=== PATIENT | female | born 1955 | race Caucasian/White ===

== ENCOUNTER 2020-05-30 21:16 | Emergency (ER) | payer OTHER, MEDICAID ==
[~2020-05-30] VITALS: Ht 162.6 cm; Wt 57.6 kg
[2020-05-30 21:34] LABS: URINE BILIRUBIN NEGATIVE (Negative); URINE BLOOD NEGATIVE (Negative); URINE CLARITY CLEAR; URINE COLOR YELLOW; URINE GLUCOSE-RANDOM NEGATIVE (Negative); URINE KETONES NEGATIVE (Negative); URINE LEUKOCYTES TRACE (Negative); URINE NITRITE NEGATIVE (Negative); URINE PROTEIN NEGATIVE (Negative); URINE SPECIFIC GRAVITY <= 1.005 (1.005-1.030); URINE UROBILINOGEN 0.2 E.U./dl (0.2-1.0)
[2020-05-30 21:46] LABS: SQUAMOUS >10 Many /LPF (0-3)
[2020-05-30] MEDS ORDERED: PROZAC40 MG PO (21:46)
[2020-05-30 21:47] LABS: CASTS None Seen /LPF (None Seen); CRYSTALS None Seen /LPF (None Seen); MUCUS None Seen strn/LPF (None Seen); URINE RBC None Seen /HPF (0-2); URINE WBC 0-5 Rare /HPF (0-5)
[2020-05-30 21:48] LABS: HEMATOCRIT 35.3 % (37.0-47.0); HEMOGLOBIN 12.1 gm/dL (12.0-15.0); MCH 34.6 pg (26.0-34.0); MCHC 34.3 g/dL (28.0-37.0); MCV 100.9 fL (80.0-100.0); MPV 9.8 fl. (7.2-11.1); RBC 3.5 mil/uL (4.20-5.00); RDW-CV 14.9 % (10.5-14.5); WBC 12.5 thou/uL (4.0-11.0)
[2020-05-30 21:51] LABS: AMP/METHAMP Negative (Negative); BARBITURATES Negative (Negative); BENZODIAZEPINES Negative (Negative); COCAINE Negative (Negative); METHADONE Negative (Negative); OPIATES Negative (Negative); PCP Negative (Negative); THC Negative (Negative)
[2020-05-30 21:56] LABS: CALCIUM 7.9 mg/dL (8.5-10.1); CREATININE 0.8 mg/dL (0.6-1.3); POTASSIUM 3.6 mmol/L (3.5-5.1)
[2020-05-30 22:00] LABS: ALBUMIN 3.8 g/dL (3.4-5.0); TOTAL BILIRUBIN 0.3 mg/dL (<0.1-1.0); TOTAL PROTEIN 7.1 g/dL (6.4-8.2)
[2020-05-30 22:05] LABS: ACETAMINOPHEN < 2 ug/mL (10-30); ALCOHOL 239 mg/dL (<10); SALICYLATE 4.9 mg/dL (2.8-20.0)
[2020-05-31 12:03] VITALS: BP 137/61
== END 2020-05-31 12:03 ==
LOC: M.ERS 21:16
PROVIDERS: Personal Emergency Response Attendant
DX: F32.9 Major depressive disorder, single episode, unspecified (principal); Z20.828 Contact with and (suspected) exposure to other viral communicable diseases; R45.851 Suicidal ideations; F10.929 Alcohol use, unspecified with intoxication, unspecified; Z79.899 Other long term (current) drug therapy

== ENCOUNTER 2020-08-29 12:42 | Inpatient (IN) | payer OTHER, MEDICAID ==
[~2020-08-29] VITALS: Ht 167.6 cm; Wt 57.3 kg
[2020-08-29] VITALS (8 sets, daily range): BP systolic 130–169; BP diastolic 68–83
[~2020-08-29 12:42] MED LIST: B-12500 MCG PO; MAGNESIUM400 MG PO; PEPCID20 MG PO; PRAZOSIN HCL1 MG PO; PRENATAL PO; PROZAC40 MG PO; REMERON 30 MG T30 M1 PO; ZYPREXA2.5 MG PO
[2020-08-29 13:06] LABS: URINE BILIRUBIN NEGATIVE (Negative); URINE BLOOD 2+ (Negative); URINE CLARITY CLEAR; URINE COLOR YELLOW; URINE GLUCOSE-RANDOM NEGATIVE (Negative); URINE KETONES 2+ (Negative); URINE LEUKOCYTES-REFLEX NEGATIVE (Negative); URINE NITRITE-REFLEX NEGATIVE (Negative); URINE PROTEIN NEGATIVE (Negative); URINE SPECIFIC GRAVITY 1.025 (1.005-1.030); URINE UROBILINOGEN 0.2 E.U./dl (0.2-1.0)
[2020-08-29 13:16] LABS: AMP/METHAMP Negative (Negative); BARBITURATES Negative (Negative); BENZODIAZEPINES Negative (Negative); COCAINE Negative (Negative); METHADONE Negative (Negative); OPIATES Negative (Negative); PCP Negative (Negative); THC POSITIVE (Negative)
[2020-08-29 13:19] LABS: SQUAMOUS 0-3 Few /LPF (0-3)
[2020-08-29 13:20] LABS: BACTERIA-REFLEX None Seen /HPF (None Seen); URINE RBC 0-2 Rare /HPF (0-2); URINE WBC-REFLEX None Seen /HPF (0-5)
[2020-08-29 13:21] LABS: CASTS None Seen /LPF (None Seen); CRYSTALS None Seen /LPF (None Seen)
[2020-08-29 13:31] LABS: HEMATOCRIT 42.7 % (37.0-47.0); HEMOGLOBIN 13.8 gm/dL (12.0-15.0); MCH 33.3 pg (26.0-34.0); MCHC 32.3 g/dL (28.0-37.0); MCV 102.8 fL (80.0-100.0); MPV 9.9 fl. (7.2-11.1); NUCLEATED RBCS 0 /100WBC; PLATELET COUNT* 325 thou/uL (150-400); RBC 4.16 mil/uL (4.20-5.00); RDW-CV 14.4 % (10.5-14.5); WBC 29.2 thou/uL (4.0-11.0)
[2020-08-29 13:42] LABS: CALCIUM 8.3 mg/dL (8.5-10.1); CREATININE 0.9 mg/dL (0.6-1.3); POTASSIUM 3.6 mmol/L (3.5-5.1)
[2020-08-29 13:45] LABS: APTT 22.6 Seconds (25.0-31.3); PROTIME 10.3 Seconds (9.20-11.50)
[2020-08-29 13:47] LABS: ALBUMIN 4.7 g/dL (3.4-5.0); TOTAL BILIRUBIN 6.3 mg/dL (<0.1-1.0); TOTAL PROTEIN 7.7 g/dL (6.4-8.2)
[2020-08-29 13:50] LABS: ALCOHOL 133 mg/dL (<10); SALICYLATE 6.9 mg/dL (2.8-20.0)
[2020-08-29 13:51] LABS: ACETAMINOPHEN < 2 ug/mL (10-30)
[2020-08-29 14:09] LABS: ABSOLUTE LYMPHOCYTES 1.2 thou/uL (0.8-5.3); ABSOLUTE MONOCYTES 0.3 thou/uL (0.0-1.2); ABSOLUTE NEUTROPHILS 27.7 thou/uL (1.6-8.1); PLATELET ESTIMATE ADEQUATE
[2020-08-29 14:16] LABS: PCO2 26.6 mmHg (35.0-45.0); PO2 117.1 mmHg (75.0-100.0); pH 7.321 (7.340-7.450)
--- NOTE | 2020-08-29 14:22 | NUR ---
unable to to get ct due to pt condition combative and agitated
[2020-08-29 15:27] LABS: CALCIUM 7.9 mg/dL (8.5-10.1); CREATININE 0.8 mg/dL (0.6-1.3); POTASSIUM 3.8 mmol/L (3.5-5.1)
--- NOTE | 2020-08-29 17:40 | EKG ---
[place] [address] ELECTROCARDIOGRAM REPORT Name: DAVONTE STOUT Room: [address] .R.#: [id number] Admission: 08/29/20 Attend Phys: Sophie Delong, Discharge: Date of : 59 Date of Service: 08/29/20 1340 Report #: [id number] THIS REPORT FOR: //name// [facility] ED Test Date: 2020-08-29 Test Time: 13:40:11 Pat Name: DAVONTE STOUT Department: Room: [facility] Gender: F Icing Maker: EVIN : 1955 Requested By: Natan Braga Order Number: [id number] MD: Jamal aSnchez Measurements Intervals [place] Rate: 106 P: 64 [place]: 141 QRS: 56 QRSD: 149 T: -79 QT: 436 QTc: 580 Interpretive Statements Sinus tachycardia Atrial premature complex Probable left atrial enlargement Left bundle branch block Prolonged QT interval No previous ECG available for comparison Electronically Signed On 08-29-2020 17:40:21 ROTATING EQUIPMENT SPECIALIST by Jamal Sanchez [email or web address] <ELECTRONICALLY SIGNED> By: Jamal Sanchez MD, FACC 08/29/20 1740 1340 1340 Jamal Sanchez MD, [facility] /EPI
--- NOTE | 2020-08-29 18:26 | NUR ---
THIS ELECTRONICS TECHNICIAN ADMITTED PT TO ICU AT 1500 ASSESSMENT CHARTED. PT IS ALTERED MENTAL STATUS PULLING ON LINES AND IV BUT EASILY REDIRECTABLE TECH REMAINS 1:1 OBSERVATION FOR OD AND SUICIDE ATTEMPT. THIS ELECTRONICS TECHNICIAN ASKED IF PT WANTS TO HARM SELF OR OTHER SHE STATED SHE WANTED TO HARM HERSELF THAT SHE DIDN'T WANT TO LIVE ANYMORE THIS ELECTRONICS TECHNICIAN ASKED IF PT HAD A PLAN AND PT STATED YES i DO HAVE A PLAN BUT IM NOT GOING TO TELL YOU. THIS ELECTRONICS TECHNICIAN ASKED IF PT DRANK SHE STATED YES THAT SHE WAS CLEAN FOR 20 YEARS AND THEN HER MOTHER LESS THAN A YEAR AGO AND SHE WAS EVICTED FROM HER APT AND NOW IN LOW INCOME HOUSING PT IS TEARFUL AND SAD. PT STATED SHE WAS ADMITTED FOR THE SAME THING TO A PLACE CALLED [facility] BUT WAS ONLY THERE A FEW DAYS BECAUSE SHE COULDNT HEAR IN GROUPS AND IT WASN'T BENEFITTING HER. PT IS VERY HARD OF HEARING AND SAID SHE WOULD WEAR HEARING AIDS IF SHE HAD THEM. PENDING TELEY PSYCH CONSULT TOMORROW POIS ON CONTROL FOLLOWING NEPHRO CONSULTED PER NEPHROLOGY GIVE FLUIDS AND MONITOR. PT STATED SON HUGH CAN [facility] AND HE LIVES IN A JAIL BUT SHE DID NOT WANT HER DAUGHTER TO FIND OUT OR KNOW SHE IS HERE CASE MGMT CONSULTED
[2020-08-30] VITALS (15 sets, daily range): BP systolic 130–149; BP diastolic 67–100
[2020-08-30 06:15] LABS: HEMATOCRIT 33.7 % (37.0-47.0); MCH 33.5 pg (26.0-34.0); MCHC 33.7 g/dL (28.0-37.0); MCV 99.5 fL (80.0-100.0); MPV 10.3 fl. (7.2-11.1); RBC 3.39 mil/uL (4.20-5.00); RDW-CV 14.2 % (10.5-14.5)
[2020-08-30 06:20] LABS: HEMOGLOBIN 11.4 gm/dL (12.0-15.0)
[2020-08-30 06:31] LABS: ALBUMIN 3.6 g/dL (3.4-5.0); CALCIUM 7.7 mg/dL (8.5-10.1); CREATININE 0.9 mg/dL (0.6-1.3); MAGNESIUM 1.8 mg/dL (1.8-2.4); POTASSIUM 3.4 mmol/L (3.5-5.1); TOTAL BILIRUBIN 4.6 mg/dL (<0.1-1.0); TOTAL PROTEIN 6.2 g/dL (6.4-8.2)
--- NOTE | 2020-08-30 06:52 | NUR ---
ASSUMED PATIENT CARE AT 1900. ASSESSMENTS COMPLETED CHARTED. CARDIAC MONITORING IN PLACE. PATIENT REMAINS ON 1:1 OBSERVATION. BED LOCKED AND IN LOWEST POSITION. FALL PRECAUTIONS IN PLACE FOR PATIENT SAFETY.
--- NOTE | 2020-08-30 09:29 | NUR ---
3140 ASSUMED CARE OF PATIENT. PLEASE SEE DOCUMENTED ASSESSMENT. PT IS RESTLESS BUT ORIENTED. PULLING AT ANDERSON CATHETER. ANDERSON CATHETER REMOVED PER ORDER DR DELANEY
--- NOTE | 2020-08-30 11:36 | CON ---
[address] [address] CONSULTATION Name: DAVONTE STOUT Room: [address] M.R.#: [id number] Admission: 08/29/20 Attend Phys: Sophie Delong MD Discharge: Date of : 59 Report #: [id number] THIS REPORT FOR: cc: Physician not on staff Physician not on staff ~ Tristan Burns MD DATE OF SERVICE: 08/30/2020 REQUESTING PHYSICIAN: Dr. Delong. REASON FOR CONSULTATION: Drug overdose and metabolic acidosis. HISTORY OF PRESENT ILLNESS: The patient is a 64-year-old female with a medical history significant for alcohol dependence, depression, presents to the hospital due to her being found down. She apparently took multiple tablets of Aleve. It is unclear how many Aleve she took. She also was intoxicated with alcohol. Alcohol level was 133. The acetaminophen level was checked, it was negative. She had a metabolic acidosis on admission with elevated anion gap. Again, her BUN and creatinine were normal, but her alcohol level was very high. SOCIAL HISTORY: Positive for alcoholism. FAMILY HISTORY: Noncontributory. MEDICATIONS PRIOR TO ADMISSION: Reviewed. REVIEW OF SYSTEMS: She feels fine now. No complaints. PHYSICAL EXAMINATION: GENERAL: Awake, alert, oriented. VITAL SIGNS: Blood pressure 145/73, heart rate 88, afebrile. HEENT: Pupils are round. NECK: Supple. LUNGS: Clear. CARDIOVASCULAR: Regular rate. ABDOMEN: Soft. LOWER EXTREMITIES: No edema. LABORATORY DATA: From today revealed serum sodium of 143, potassium 3.4, chloride 108, carbon dioxide 22, BUN 13, creatinine 0.9. Anion gap is normal. ASSESSMENT: 1. [place] [address] CONSULTATION Name: MARINAJANELLEDAVONTE E Room: [address] IN [facility].#: [id number] Admission: 08/29/20 Attend Phys: Sophie Delong MD Discharge: Date of : 59 Report #: [id number] 2. Metabolic acidosis, likely due to alcohol intoxication. Metabolic acidosis, resolved. PLAN: My plan is counseling her regarding necessity of stopping alcohol. She is at high risk of developing liver cirrhosis and maybe overdose again, so 30 minutes spent on discussing this with the patient, but at this point from my standpoint, she is doing fine. Her acidosis resolved. She does have some hypokalemia, which need to be replaced. She is malnourished due to her alcoholism. So again, all other problems are coming from her alcoholism. She needs to give attention in that area. I will sign off. <ELECTRONICALLY SIGNED> By: Tristan Burns MD 08/30/20 1136 1048 1103Alexandr Lexis Burns MD /nt
--- NOTE | 2020-08-30 13:01 | NUR ---
PT IS TELE STATUS. ORIENTED X 3-4 BUT FORGETFUL, ASSISTED WITH EATING. POOR APPETITE. ASKS FOR PHONE. VOIDED PER BSC
--- NOTE | 2020-08-30 15:34 | NUR ---
ICU rounds: Tele status. AMS. Will need tele psych, admitted with SI. PD report on chart, will likely need affidavits. CM attempted to assess, Pt remains AMS. Sitter at bedside.
--- NOTE | 2020-08-30 15:45 | NUR ---
UPDATED POISON CONTROL ON PATIENT STATUS
--- NOTE | 2020-08-30 16:00 | NUR ---
REPORT CALLED TO ELLE MORENO. TRANSFERRED TO ROOM 228 WITH SITTER.
--- NOTE | 2020-08-30 16:40 | NUR ---
PT TRANSFERRED TO ROOM 228 ACCOMPANIED BY SITTER VIA REPORT FROM ANAT ALMEIDA.ROOM SCRUBBED IN PREPARATION.PT ALERT OX1,DISORGANIZED THOUGHTS,ANXIOUS,RESTLESS,NON COMPLIANT AND HAS BEEN COMBATIVE.PT GIVEN ATIVAN PRIOR TO TRANSFER AND BELIEVE THAT IS HAVING THE OPPOSITE EFFECT.PT UNSTEADY AND REQUIRES AX1-2 TO BSC.BETTINA
[2020-08-31 00:33] VITALS: BP 164/70
[2020-08-31 04:00] VITALS: BP 156/71
[2020-08-31 05:09] LABS: CALCIUM 8.5 mg/dL (8.5-10.1); CREATININE 0.8 mg/dL (0.6-1.3); MAGNESIUM 1.8 mg/dL (1.8-2.4); POTASSIUM 3.3 mmol/L (3.5-5.1); TOTAL BILIRUBIN 0.7 mg/dL (<0.1-1.0); TOTAL PROTEIN 5.5 g/dL (6.4-8.2)
[2020-08-31 05:20] LABS: HEMATOCRIT 33.8 % (37.0-47.0); HEMOGLOBIN 11.2 gm/dL (12.0-15.0); MCH 33.7 pg (26.0-34.0); MCHC 33.2 g/dL (28.0-37.0); MCV 101.4 fL (80.0-100.0); RBC 3.34 mil/uL (4.20-5.00); RDW-CV 14.8 % (10.5-14.5); WBC 13.7 thou/uL (4.0-11.0)
[2020-08-31 08:00] VITALS: BP 124/56
[2020-08-31 12:51] VITALS: BP 128/75
[2020-08-31 16:38] VITALS: BP 157/85
--- NOTE | 2020-08-31 17:00 | NUR ---
CM INFORMED OF THE NEED TO INTIATE INPT PSYCH PLACEMENT FOR PT. CM CONTACTED: [facility] 'AT CAPACITY'. [facility] 'AT CAPACITY'. [facility] '[facility]'. CM SPOKE TO [facility] AND [facility] AND BOTH HAVE BED AVAILABILITY ANDF ARE WILLING TO REVIEW REFERRAL. CM FAXED INPT PSYCH REFERRAL TO BOTH AND INFORMED THEM TO CONTACT RN IN-CHARGE OF PATIENT OT OUTCOMES ANALYST TO INFORM OF ABILITY TO ACCEPT PT. CM FILLED OUT EMTALA AND AMBULANCE TRANSFER FORM AND INFORMED RN OF NEED TO COMPLETE FORM AND MAKE CHART COPY. CM WILL REMAIN AVAILABLE TO ASSIST AND FOLLOW NEEDED. SIGNATURE INPT PSYCH PHONE: [phone] FAX: [phone] [facility] PHONE: [phone] FAX: [phone]
--- NOTE | 2020-08-31 18:16 | NUR ---
RECEIVED REPORT AROUND 0715. ASSUMED CARE. VS AND ASSESSMENT CHARTED. IV INTACT LEFT FOREARM. HEART MONITOR ATTACHED AT SR WITH BBB. PT LYING IN BED. MEDS GIVEN PER SEP. TELE PSYCH DONE THIS SHIFT. RECOMMENDATIONS STARTED. ONE TO ONE IN ROOM. HOURLY ROUNDING PERFORMED. SITTER 01/02. PT TEARFUL THIS SHIFT. WILL BE GOING TO INPATIENT PSYCHIATRIC ONCE ACCEPTED. SI PRECAUTIONS INTACT. PT ABLE TO USE CALL LIGHT ON BED. WILL CONTINUE TO MONITOR.
[2020-08-31 20:00] VITALS: BP 151/72
[2020-09-01] VITALS: BP 122/63
[2020-09-01 04:00] VITALS: BP 148/71
[2020-09-01 08:00] VITALS: BP 158/79
[2020-09-01 12:37] VITALS: BP 156/83
[2020-09-01 15:09] VITALS: BP 151/106
--- NOTE | 2020-09-01 17:54 | NUR ---
RECEIVED REPORT AROUND 0715. ASSUMED CARE. IV INTACT LEFT AC. HEART MONITOR ATTACHED AT SR WITH BBB. PT LYING IN BED THIS AM. ONE TO ONE. SITTER IN ROOM AT ALL TIMES. PT VERY TEARFUL AND ANXIOUS THIS AM. VS AND ASSESSMENT CHARTED. MEDS GIVEN PER SEP. HOURLY ROUNDING PERFORMED. SIGNATURE [facility] ACCEPTED PT. DICHARGE PACKET GIVEN TO EMS. REPORT GIVEN TO ELI. IV TAKEN OUT. HEART MONITOR OFF. SON(HUGH) AND HIS CLINICAL THERAPIST ARIANNA CALLED AND UPDATED ON SITUATION. PT TALKED TO SON VIA WORK PHONE. PT WAS VERY ANXCIOUS ABOUT BELONGINGS AND APARTMENT BEING LOCKED. SANDEEP NGUYEN CALLED AND REPORTED SITE WAS SECURED. PT UPDATED AND BECAME MORE CALM. PT LEFT UNIT VIA EMS AT 1735 WITH ALL BELONGINGS.
== END 2020-09-01 17:35 | DRG 917 ==
LOC: M.ERS 12:42 → M.ICU 13:39 → M.TBA-ER 13:39 → M.ICU 14:45 → M.2W 08-30 16:05
PROVIDERS: Family Medicine; Internal Medicine; ADMIT Internal Medicine; ATTEND Internal Medicine
DX: T39.092A Poisoning by salicylates, intentional self-harm, initial encounter (principal); G92 Toxic encephalopathy; J69.0 Pneumonitis due to inhalation of food and vomit; R45.851 Suicidal ideations; E87.2 Acidosis; R65.10 Systemic inflammatory response syndrome (SIRS) of non-infectious origin without acute organ dysfunction; B17.9 Acute viral hepatitis, unspecified; M62.82 Rhabdomyolysis; F10.221 Alcohol dependence with intoxication delirium; T45.0X2A Poisoning by antiallergic and antiemetic drugs, intentional self-harm, initial encounter; F12.90 Cannabis use, unspecified, uncomplicated; F32.9 Major depressive disorder, single episode, unspecified; F41.9 Anxiety disorder, unspecified; F43.10 Post-traumatic stress disorder, unspecified; Y90.9 Presence of alcohol in blood, level not specified; E16.2 Hypoglycemia, unspecified; Z20.822 Contact with and (suspected) exposure to COVID-19; Y92.89 Other specified places as the place of occurrence of the external cause; Z79.899 Other long term (current) drug therapy

== ENCOUNTER 2021-02-04 22:24 | Emergency (ER) | payer OTHER, MEDICAID ==
[~2021-02-04] VITALS: Ht 162.6 cm; Wt 59.2 kg
[2021-02-04 23:09] LABS: ABSOLUTE BASOPHILS 0.1 thou/uL (0.0-0.2); ABSOLUTE LYMPHOCYTES 2.8 thou/uL (0.8-5.3); ABSOLUTE MONOCYTES 0.8 thou/uL (0.0-1.2); ABSOLUTE NEUTROPHILS 7.5 thou/uL (1.6-8.1); BASOPHILS 1.3 %; EOSINOPHILS 0.4 %; HEMATOCRIT 36.4 % (37.0-47.0); HEMOGLOBIN 12.4 gm/dL (12.0-15.0); LYMPHOCYTES 24.6 %; MCH 33.8 pg (26.0-34.0); MCV 99.4 fL (80.0-100.0); MONOCYTES 7.2 %; MPV 9.5 fl. (7.2-11.1); NUCLEATED RBCS 0 /100WBC; PLATELET COUNT* 331 thou/uL (150-400); POLYS 66.5 %; RBC 3.66 mil/uL (4.20-5.00); RDW-CV 14.7 % (10.5-14.5); WBC 11.2 thou/uL (4.0-11.0)
[2021-02-04 23:17] LABS: CALCIUM 8.6 mg/dL (8.5-10.1); POTASSIUM 3.7 mmol/L (3.5-5.1)
[2021-02-04 23:22] LABS: ALBUMIN 3.6 g/dL (3.4-5.0); MAGNESIUM 1.7 mg/dL (1.8-2.4); TOTAL BILIRUBIN 0.3 mg/dL (<0.1-1.0); TOTAL PROTEIN 6.9 g/dL (6.4-8.2)
[2021-02-04 23:34] LABS: SALICYLATE 10.8 mg/dL (2.8-20.0)
[2021-02-04 23:36] LABS: ACETAMINOPHEN < 2 ug/mL (10-30)
[2021-02-04 23:42] LABS: URINE BILIRUBIN NEGATIVE (Negative); URINE BLOOD 2+ (Negative); URINE CLARITY CLEAR; URINE COLOR YELLOW; URINE GLUCOSE-RANDOM NEGATIVE (Negative); URINE KETONES 2+ (Negative); URINE LEUKOCYTES-REFLEX NEGATIVE (Negative); URINE NITRITE-REFLEX NEGATIVE (Negative); URINE PROTEIN 1+ (Negative); URINE SPECIFIC GRAVITY >= 1.030 (1.005-1.030); URINE UROBILINOGEN 0.2 E.U./dl (0.2-1.0)
[2021-02-04 23:50] LABS: AMP/METHAMP Negative (Negative); BARBITURATES Negative (Negative); BENZODIAZEPINES Negative (Negative); COCAINE Negative (Negative); METHADONE Negative (Negative); OPIATES Negative (Negative); PCP Negative (Negative); THC Negative (Negative)
[2021-02-04 23:59] LABS: SQUAMOUS 0-3 Few /LPF (0-3)
[2021-02-05] LABS: AMORPHOUS URATES Moderate /LPF (None Seen); BACTERIA-REFLEX 1-9 Few /HPF (None Seen); COARSE GRANULAR CASTS 0-3 Few /LPF (None Seen); FINE GRANULAR CASTS 0-3 Few /LPF (None Seen); MUCUS 4-6 Moderate strn/LPF (None Seen); URINE RBC 3-10 Few /HPF (0-2); URINE WBC-REFLEX None Seen /HPF (0-5)
[2021-02-05 01:13] LABS: BE -9.7 mmol/L (-2 to +3); PO2 110.1 mmHg (75.0-100.0); pH 7.337 (7.340-7.450)
[2021-02-05 05:19] LABS: SALICYLATE 7.6 mg/dL (2.8-20.0)
[2021-02-05 13:09] VITALS: BP 139/76
--- NOTE | 2021-02-05 14:16 | EKG ---
[place] [address] ELECTROCARDIOGRAM REPORT Name: DAVONTE STOUT Room: [facility]#: [id number] Admission: 02/04/21 Attend Phys: Discharge: 02/05/21 Date of : 59 Date of Service: 02/04/212228 Report #: [id number] THIS REPORT FOR: //name// [facility] ED Test Date: 2021-02-04 Test Time: 22:29:40 Pat Name: DAVONTE STOUT Department: Room: Gender: Aviculturist: [place] : 1955 Requested By: Minna Jim Order Number: [id number] MD: Anuj Thompson Measurements Intervals [place] Rate: 98 P: 79 [place]: 155 QRS: 69 QRSD: 168 T: -76 QT: 430 QTc: 550 Interpretive Statements Sinus rhythm Probable left atrial enlargement Left bundle branch block Prolonged QT interval Compared to ECG 08/29/2020 13:40:11 PACs are no longer noted Electronically Signed On 02-05-2021 14:15:46 CDT by Anuj Thompson [email or web address] <ELECTRONICALLY SIGNED> By: Anuj Thompson MD, [facility] 02/05/21 1415 28 28 Anuj Thompson MD, [facility] /EPI
--- NOTE | 2021-02-05 14:16 | EKG ---
[place] [address] ELECTROCARDIOGRAM REPORT Name: DAVONTE STOUT Room: [facility]#: [id number] Admission: 02/04/21 Attend Phys: Discharge: 02/05/21 Date of : 59 Date of Service: 02/05/21 0146 Report #: [id number] THIS REPORT FOR: //name// [facility] ED Test Date: 2021-02-05 Test Time: 01:46:00 Pat Name: DAVONTE STOUT Department: Room: Gender: Apprentice Painter Brush: SAM : 1955 Requested By: Minna Jim Order Number: [id number] MD: Anuj Thompson Measurements Intervals [place] Rate: 92 P: 69 MA: 158 QRS: 35 QRSD: 167 T: 117 QT: 444 QTc: 550 Interpretive Statements Sinus rhythm Left bundle branch block Nonspecific ST abnormalities Since the prior tracing, no significant interval change Electronically Signed On 02-05-2021 14:16:49 CDT by Anuj Thompson [email or web address] <ELECTRONICALLY SIGNED> By: Anuj Thompson MD, [facility] 02/05/21 1416 0146 0146 Anuj Thompson MD, [facility] /EPI
--- NOTE | 2021-02-05 14:19 | EKG ---
[place] [address] ELECTROCARDIOGRAM REPORT Name: DAVONTE STOUT Room: [facility]#: [id number] Admission: 02/04/21 Attend Phys: Discharge: 02/05/21 Date of : 59 Date of Service: 02/05/216[address] Report #: [id number] THIS REPORT FOR: //name// [facility] ED Test Date: 2021-02-05 Test Time: 06:13:03 Pat Name: DAVONTE STOUT Department: Room: Gender: F Salvage Diver: [place] : 1955 Requested By: Minna Jim Order Number: [id number] MD: Anuj Thompson Measurements Intervals [place] Rate: 94 P: 73 MN: 150 QRS: 13 QRSD: 156 T: 55 QT: 425 QTc: 532 Interpretive Statements Sinus rhythm Left bundle branch block Nonspecific ST-T abnormalities Since the prior tracing, no significant interval change Electronically Signed On 02-05-2021 14:19:12 CDT by Anuj Thompson [email or web address] <ELECTRONICALLY SIGNED> By: Anuj Thompson MD, [facility] 02/05/21 1419 2 2 Anuj Thompson MD, [facility] /EPI
--- NOTE | 2021-02-05 16:14 | EKG ---
[place] [address] ELECTROCARDIOGRAM REPORT Name: DAVONTE STOUT Room: [facility]#: [id number] Admission: 02/04/21 Attend Phys: Discharge: 02/05/21 Date of : 59 Date of Service: 02/05/21 1102 Report #: [id number] THIS REPORT FOR: //name// [facility] ED Test Date: 2021-02-05 Test Time: 11:02:11 Pat Name: DAVONTE STOUT Department: Room: Gender: Home Care Manager Rn: : 1955 Requested By: Minna Jim Order Number: [id number] MD: Anuj Thompson Measurements Intervals [place] Rate: 92 P: 72 MN: 171 QRS: 32 QRSD: 157 T: 174 QT: 424 QTc: 525 Interpretive Statements Sinus rhythm Left bundle branch block Compared to ECG 02/05/2021 06:13:03 No significant interval change Electronically Signed On 02-05-2021 16:14:01 CDT by Anuj Thompson [email or web address] <ELECTRONICALLY SIGNED> By: Anuj Thompson MD, [facility] 02/05/21 1614 1102 1102 Anuj Thompson MD, [facility] /EPI
== END 2021-02-05 13:10 ==
LOC: M.ERS 22:24
PROVIDERS: Emergency Medicine
DX: T43.212A Poisoning by selective serotonin and norepinephrine reuptake inhibitors, intentional self-harm, initial encounter (principal); Z20.822 Contact with and (suspected) exposure to COVID-19; F10.129 Alcohol abuse with intoxication, unspecified; F17.210 Nicotine dependence, cigarettes, uncomplicated; F32.9 Major depressive disorder, single episode, unspecified; F41.9 Anxiety disorder, unspecified; Z79.899 Other long term (current) drug therapy; Y90.9 Presence of alcohol in blood, level not specified; Y92.89 Other specified places as the place of occurrence of the external cause